=== PATIENT | female | born 1970 | race Two or more races ===

== ENCOUNTER 2023-04-04 11:12 | Emergency (ER) | payer BC ==
[~2023-04-04] VITALS: Ht 160 cm; Wt 74.8 kg
[2023-04-04 11:55] LABS: BASOPHILS % (AUTO) 0.4 % (0.0-2.0); EOSINOPHILS # (AUTO) 0.2 K/uL (0.0-0.7); EOSINOPHILS % (AUTO) 2.6 % (0.0-6.0); HEMATOCRIT 41 % (33-45); HEMOGLOBIN 13.6 g/dL (11.5-14.8); LYMPHOCYTES # (AUTO) 2.4 K/uL (0.8-4.8); LYMPHOCYTES % (AUTO) 30.3 % (20.0-44.0); MEAN CORPUSCULAR HEMOGLOBIN 30 PG (26.0-33.0); MEAN CORPUSCULAR HGB CONC 33 g/dl (31.0-36.0); MEAN CORPUSCULAR VOLUME 91 fL (82-100); MONOCYTES # (AUTO) 0.7 K/uL (0.1-1.30); MONOCYTES % (AUTO) 8.5 % (2.0-12.0); NEUTROPHILS # (AUTO) 4.7 K/uL (1.8-8.9); NEUTROPHILS % (AUTO) 58.2 % (43.0-81.0); PLATELET COUNT (AUTO) 298 K/uL (150-450); RED BLOOD CELL COUNT(AUTO) 4.47 MIL/uL (4.0-5.2); RED CELL DISTRIBUTION WIDTH 13.8 % (11.5-15.0)
[2023-04-04 12:08] LABS: CALCIUM, SERUM 8.9 mg/dL (8.5-10.1); CARBON DIOXIDE 25 mmol/L (21-32); CHLORIDE 106 mmol/L (98-107); CREATININE 0.7 mg/dL (0.6-1.3); GLUCOSE 98 mg/dL (74-106); SODIUM SERUM 137 mmol/L (136-145); UREA NITROGEN, BLOOD 19 mg/dL (7-18)
[2023-04-04] MEDS ORDERED: ACETAMINOPHEN 325 MG TABLET ONE (13:14)
[2023-04-04] MEDS ORDERED: MECL-159 PO (13:19)
[2023-04-04] MEDS ORDERED: ACETAMINOPHEN 325 MG TABLET PO ONE (13:30)
[2023-04-04 13:49] VITALS: BP 114/85; TEMP 98.1; O2SAT 96
== END 2023-04-04 13:49 | disposition home or self-care (01) ==
LOC: ER 11:25
DX: R42 Dizziness and giddiness (principal)
CPT/HCPCS: 36415; 71045-TC; 80048-TC; 84484-TC; 85025-TC